=== PATIENT | female | born 1965 | race Caucasian/White ===

== ENCOUNTER → 2016-12-11 | Outpatient (CLI) | payer BC ==
--- NOTE | 2016-12-11 09:19 | CT ---
CT Abdomen and Pelvis Unenhanced (Renal Stone Protocol) Indication: Left flank pain. Former smoker. Comparison: Pelvic ultrasound July 22, 2014. Technique: Axial unenhanced CT imaging was performed through the abdomen and pelvis without contrast . Dose reduction techniques were utilized. Findings: Abdomen: There are scattered less than 5 mm ground-glass opacities including bibasilar opacities on i mage 4 series 23. Scattered tiny cysts are present in the lung bases. Heart size is normal. Tiny hypodensities in the liver are too small to characterize. The gallbladder, pancreas, and adrenal s have a normal unenhanced appearance. The spleen is upper normal in size. There is a nonobstructing 1 cm stone in the left renal pelvis with greater than ten additional nonobstructing left renal stones measuring up to approximately 6 mm. No ureteral stones are present. The right kidney has a normal un enhanced appearance. The colon and small bowel are normal caliber. The appendix is not visible. There is no free air. The aorta is normal caliber. Mild annular bulges are present at multiple levels in the lumbar spine with minimal spinal canal narr owing. Scattered probable bone islands are noted. Pelvis: No bladder or distal ureteral calcifications are identified. Mild bladder wall thickening i s likely related to underdistention. The uterus is surgically absent. There is trace free fluid. No a dnexal masses are identified. No aggressive osseous lesions are identified. Impression: 1. Numerous nonobstructing left renal stones including a 1 cm stone in the left renal pelvis. 2. Scattered tiny ground-glass opacities with tiny cysts in the lung bases. The findings are nonspeci fic and could be related to Langerhans cell histiocytosis or other etiology. If previous CTs can be m augustin available, I will be happy to compare them. If no previous CTs are available, consider CT chest f or follow up in one year. 3. Additional findings as above. Attention: This CT examination is specifically designed to evaluate patients who are clinically susp ected of having acute obstructive uropathy. This examination does not use radiographic contrast, and as such, provides only a limited evaluation of the abdomen, pelvis and retroperitoneum. If there i s further clinical suspicion for pathological conditions other than obstructive uropathy, a complete CT evaluation of the abdomen and pelvis utilizing intravenous and oral contrast should be considered.
== END ==
LOC: FIMAGING 07:57
PROVIDERS: ATTEND Family Medicine
DX: N20.0 Calculus of kidney (principal); M51.86 Other intervertebral disc disorders, lumbar region; Z87.891 Personal history of nicotine dependence